=== PATIENT | female | born 2000 | race Caucasian/White ===

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

== ENCOUNTER 2022-01-28 20:14 | Emergency (ER) | payer BC ==
[2022-01-28] MEDS ORDERED: Sodium Chloride 0.9% 1000 ML 1,000 ML IV STA (20:44)
[2022-01-28 21:10] LABS: Basophil (Absolute #) 0.02 (0-0.4); Eosinophil % 0.6 % (0.00-5.0); Eosinophil (Absolute #) 0.05 (0-0.5); Hematocrit 41.7 % (35-47); Hemoglobin 14.8 gm/dl (12.0-16.0); Lymphocyte (Absolute #) 3.38 (1.0-4.6); Lymphocytes % 43.7 % (24.0-44.0); Mean Cell Volume 90.1 fl (78-100); Mean Corpuscular Hgb Concent. 35.5 g/dl (32-36); Mean Platelet Volume 8.6 fl (7.5-11.0); Monocyte (Absolute #) 0.69 (0.0-1.3); Monocytes % 8.9 % (0.0-12.0); Neutrophil % 46.5 % (36.0-66.0); Platelet Count 324 K/mm3 (150-450); Red Blood Count 4.63 M/mm3 (4.1-5.4); Red Cell Distribution Width 13.2 % (11.5-14.0); White Blood Count 7.7 K/mm3 (4.0-10.5)
[2022-01-28] MEDS ORDERED: Sodium Chloride 0.9% 1000 ML 1,000 ML ONE (21:11)
[2022-01-28 21:22] LABS: Appearance CLEAR (CLEAR); Bilirubin NEGATIVE (NEGATIVE); Glucose NEGATIVE (NEGATIVE); Ketones NEGATIVE (NEGATIVE); Ph 7.5 (5-6); RBC LARGE Ery/ul (0-5)
[2022-01-28 21:24] LABS: Dipstick done @ ? MAIN LAB; Nitrite NEGATIVE (NEGATIVE); Protein,Urine Dip NEGATIVE (Negative); Urobilinogen 0.2 mg/dL (0-1)
[2022-01-28 21:26] LABS: Epithelial Cells RARE /HPF (FEW); Mucus SLIGHT /HPF (NEGATIVE); WBC 26-50 /HPF (0-5)
[2022-01-28 21:30] LABS: Urine Cultured Indicated? YES
--- NOTE | 2022-01-28 21:35 | ERPHSYRPT ---
- History of Present Illness Time Seen by Provider: 01/28/22 20:17 Historian: patient Exam Limitations: no limitations Patient Subjective Stated Complaint: Patient c/o abdominal pain that started 3 days ago. Patient denies any vomiting but c/o nausea. Indicates pain is to the right of her abdomen and increases with standing and eating. Denies constipation; BM today. States had loose stools 2 days ago but suffers from IBS. States had an abdominal ultasound in the radiology department here at this hospital 2 days ago but has yet to get those results. Triage Nursing Assessment: Patient ambulated back to ED without difficulties. She is alert and oriented and answering questions appropriately. Abdomen is soft, with increased pain noted to right lower abdomen with palpation. Patient indicates that pain radiates to lower back. Physician History: 22 years old female with history of recently diagnosed IBS, started on dicyclomine presented in the ER with 3 days history of off-and-on upper abdominal pain especially in the right upper quadrant mild to moderate with associated nausea but no vomiting. Pain is more with eating and standing. Patient also reports having loose stool since morning. Denies hematochezia. Currently her pain is controlled. Patient was seen outpatient and had gallbladder ultrasound done. No fever or chills reported. Timing/Duration: day(s) (3), intermittent, gradual onset, worse Activities at Onset: activity Quality: cramping, dullness Abdominal Pain Onset Location: RUQ, epigastric Pain Radiation: no radiation Severity of Pain-Max: moderate Severity of Pain-Current: mild Modifying Factors: Worsens With: eating Associated Symptoms: diarrhea, nausea, vomiting Previous symptoms: no prior history Allergies/Adverse Reactions: No Known Drug Allergies Allergy (Verified 01/28/22 20:29) Home Medications: Dicyclomine HCl 10 mg PO TID 01/28/22 [History] Hx Tetanus, Diphtheria Vaccination/Date Given: Yes Hx Influenza Vaccination/Date Given: No Hx Pneumococcal Vaccination/Date Given: No Immunizations Up to Date: Yes Travel Risk - International Travel Have you traveled outside of the country in past 3 weeks: No - Coronavirus Screening Are you exhibiting any of the following symptoms?: No Close contact with a COVID-19 positive Pt in past 14-21 Days: No - Vaccine Status Have you recieved a Covid-19 vaccination: Yes 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: [employer] - Vaccination Dates Date of 2cond Vaccination (if applicable): 08/14/2021 - Review of Systems Constitutional: No Symptoms Ears, Nose, & Throat: No Symptoms Respiratory: No Symptoms Cardiac: No Symptoms Abdominal/Gastrointestinal: Abdominal Pain, Nausea, Diarrhea Genitourinary Symptoms: No Symptoms Musculoskeletal: No Symptoms Skin: No Symptoms Neurological: No Symptoms Psychological: No Symptoms Endocrine: No Symptoms Hematologic/Lymphatic: No Symptoms - Past Medical History Pertinent Past Medical History: Yes Neurological History: Migraines ENT History: No Pertinent History Cardiac History: No Pertinent History Respiratory History: No Pertinent History Endocrine Medical History: No Pertinent History Musculoskeletal History: No Pertinent History GI Medical History: Irritable Bowel History: No Pertinent History Psycho-Social History: Anxiety, Depression Female Reproductive Disorders: No Pertinent History Other Medical History: 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 - Past Surgical History Past Surgical History: No Neuro Surgical History: No Pertinent History Cardiac: No Pertinent History Respiratory: No Pertinent History Gastrointestinal: No Pertinent History Genitourinary: No Pertinent History Musculoskeletal: No Pertinent History Female Surgical History: No Pertinent History - Social History Smoking Status: Never smoker Exposure to second hand smoke: No Drug Use: none Patient Lives Alone: No - Female History Hx Last Menstrual Period: HASN'T HAD ONE IN A VERY LONG TIME Hx Now: No (UNSURE) - Nursing Vital Signs Nursing Vital Signs: Initial Vital Signs Temperature 99.4 F 01/28/22 20:30 Pulse Rate 114 H 01/28/22 20:30 Respiratory Rate 18 01/28/22 20:30 Blood Pressure 135/89 01/28/22 20:30 O2 Sat by Pulse Oximetry 99 01/28/22 20:30 Pain Scale Pain Intensity 0 - Physical Exam General Appearance: no apparent distress Eye Exam: PERRL/EOMI Ears, Nose, Throat Exam: normal ENT inspection Neck Exam: normal inspection, full range of motion Respiratory Exam: normal breath sounds, lungs clear Cardiovascular Exam: normal heart sounds, tachycardia Gastrointestinal/Abdomen Exam: soft, normal bowel sounds, tenderness (Minimal periumbilical tenderness), No guarding Back Exam: normal inspection, normal range of motion Extremity Exam: normal inspection, normal range of motion Neurologic Exam: alert, oriented x 3, cooperative Skin Exam: normal color SpO2 Interpretation: normal SpO2: 96 O2 Delivery: Room Air Ordered Tests: Active Orders 24 hr Category Date Time Status IV Insertion STAT Care 01/28/22 20:44 Active CBC W DIFF Stat Lab 01/28/22 21:06 Completed CMP Stat Lab 01/28/22 21:06 Completed CULTURE,URINE Stat Lab 01/28/22 20:54 Received HCG,QUALITATIVE URINE Stat Lab 01/28/22 20:54 Completed LIPASE Stat Lab 01/28/22 21:06 Completed Medication Summary Discontinued Medications Generic Name Dose Route Start Last Admin Trade Name Griffin PRN Reason Stop Dose Admin Sodium Chloride 1,000 mls @ 999 mls/hr 01/28/22 20:44 01/28/22 21:13 Sodium Chloride 0.9% 1000 Ml IV 01/28/22 21:44 999 mls/hr .Q1H1M STA Administration Sodium Chloride Confirm 01/28/22 21:11 Sodium Chloride 0.9% 1000 Ml Administered 01/28/22 21:12 Dose 1,000 mls @ ud .ROUTE .STK-MED ONE Lab/Rad Data: Laboratory Result Diagrams 01/28/22 21:06 01/28/22 21:06 Laboratory Results 01/28/22 01/28/22 01/28/22 Range/Units 21:06 21:06 20:54 WBC 7.7 (4.0-10.5) K/mm3 RBC 4.63 (4.1-5.4) M/mm3 Hgb 14.8 (12.0-16.0) gm/dl Hct 41.7 (35-47) % MCV 90.1 (78-100) fl MCH 32.0 (26-32) pg MCHC 35.5 (32-36) g/dl RDW 13.2 (11.5-14.0) % Plt Count 324 (150-450) K/mm3 MPV 8.6 (7.5-11.0) fl Gran % 46.5 (36.0-66.0) % Eos # (Auto) 0.05 (0-0.5) Absolute Lymphs (auto) 3.38 (1.0-4.6) Absolute Monos (auto) 0.69 (0.0-1.3) Lymphocytes % 43.7 (24.0-44.0) % Monocytes % 8.9 (0.0-12.0) % Eosinophils % 0.6 (0.00-5.0) % Basophils % 0.3 (0.0-0.4) % Absolute Granulocytes 3.60 (1.4-6.9) Basophils # 0.02 (0-0.4) Sodium 138 (137-145) mmol/L Potassium 4.1 (3.5-5.1) mmol/L Chloride 104 (98-107) mmol/L Carbon Dioxide 25 (22-30) mmol/L Anion Gap 13.5 (5-15) MEQ/L BUN 9 (7-17) mg/dL Creatinine 0.81 (0.52-1.04) mg/dL Estimated GFR > 60.0 ML/MIN Glucose 98 (74-106) mg/dL Calcium 9.4 (8.4-10.2) mg/dL Total Bilirubin 0.50 (0.2-1.3) mg/dL AST 38 H (14-36) U/L ALT 44 H (0-35) U/L Alkaline Phosphatase 79 (38-126) U/L Serum Total Protein 7.3 (6.3-8.2) g/dL Albumin 4.3 (3.5-5.0) g/dL Lipase 60 (23-300) U/L Urinalys Dipstick Clnc Urine Color (YELLOW) Urine Appearance (CLEAR) Urine pH (5-6) Ur Specific [place] (1.005-1.025) POC Urine Protein Conf (Negative) Urine Ketones (NEGATIVE) Urine Nitrite (NEGATIVE) Urine Bilirubin (NEGATIVE) Urine Urobilinogen (0-1) mg/dL Urine Leukocytes (NEGATIVE) Urine WBC (Auto) (0-5) /HPF Urine RBC (Auto) (0-2) /HPF U Epithel Cells (Auto) (FEW) /HPF Urine Bacteria (Auto) (NEGATIVE) /HPF Urine RBC (0-5) Abdulkadir/ul Urine Mucus (Auto) (NEGATIVE) /HPF Ur Culture Indicated? Urine Glucose (NEGATIVE) mg/dL Urine HCG, Qual NEGATIVE (Negative) 01/28/22 Range/Units 20:54 WBC (4.0-10.5) K/mm3 RBC (4.1-5.4) M/mm3 Hgb (12.0-16.0) gm/dl Hct (35-47) % MCV (78-100) fl MCH (26-32) pg MCHC (32-36) g/dl RDW (11.5-14.0) % Plt Count (150-450) K/mm3 MPV (7.5-11.0) fl Gran % (36.0-66.0) % Eos # (Auto) (0-0.5) Absolute Lymphs (auto) (1.0-4.6) Absolute Monos (auto) (0.0-1.3) Lymphocytes % (24.0-44.0) % Monocytes % (0.0-12.0) % Eosinophils % (0.00-5.0) % Basophils % (0.0-0.4) % Absolute Granulocytes (1.4-6.9) Basophils # (0-0.4) Sodium (137-145) mmol/L Potassium (3.5-5.1) mmol/L Chloride (98-107) mmol/L Carbon Dioxide (22-30) mmol/L Anion Gap (5-15) MEQ/L BUN (7-17) mg/dL Creatinine (0.52-1.04) mg/dL Estimated GFR ML/MIN Glucose (74-106) mg/dL Calcium (8.4-10.2) mg/dL Total Bilirubin (0.2-1.3) mg/dL AST (14-36) U/L ALT (0-35) U/L Alkaline Phosphatase (38-126) U/L Serum Total Protein (6.3-8.2) g/dL Albumin (3.5-5.0) g/dL Lipase (23-300) U/L Urinalys Dipstick Clnc MAIN LAB Urine Color YELLOW (YELLOW) Urine Appearance CLEAR (CLEAR) Urine pH 7.5 (5-6) Ur Specific [place] 1.020 (1.005-1.025) POC Urine Protein Conf NEGATIVE (Negative) Urine Ketones NEGATIVE (NEGATIVE) Urine Nitrite NEGATIVE (NEGATIVE) Urine Bilirubin NEGATIVE (NEGATIVE) Urine Urobilinogen 0.2 (0-1) mg/dL Urine Leukocytes SMALL (NEGATIVE) Urine WBC (Auto) 26-50 (0-5) /HPF Urine RBC (Auto) 6-10 (0-2) /HPF U Epithel Cells (Auto) RARE (FEW) /HPF Urine Bacteria (Auto) NONE (NEGATIVE) /HPF Urine RBC LARGE (0-5) Abdulkadir/ul Urine Mucus (Auto) SLIGHT (NEGATIVE) /HPF Ur Culture Indicated? YES Urine Glucose NEGATIVE (NEGATIVE) mg/dL Urine HCG, Qual (Negative) - Progress Progress: improved Progress Note: 01/28/22 22:12 Patient is offered pain medication which she refused. Given Zofran, feeling be tter. Normal white count, transaminases and 30s. Negative Earl sign. Patient had ultrasound done here couple of days ago with normal gallbladder. I believe patient symptoms are more secondary to IBS. Recommended continue with dicyclomine and take Tylenol as needed and will give Protonix at this could be acid reflux related. Outpatient follow-up. Do not think she needs imaging or work-up as abdominal exam on repeated evaluation is nonsurgical without any pain medications. Discussed signs symptoms of worsening needing return to ER which he seems understanding. Counseled pt/family regarding: lab results, diagnosis, need for follow-up - Departure Departure Disposition: Home Clinical Impression: Upper abdominal pain IBS (irritable bowel syndrome) Qualifiers: Irritable bowel syndrome type: with diarrhea Qualified Code(s): K58.0 - Irritable bowel syndrome with diarrhea Condition: Stable Critical Care Time: No Referrals: VEENA MO NP [Primary Care Provider] - Follow up/PCP as directed (1-2 days for reevaluation) Instructions: Acute Abdomen (Belly Pain), Adult (DC) Additional Instructions: Drink plenty of fluids. Take Tylenol/ dicyclomine as recommended. Follow-up with primary care for reevaluation. Return to ER for any worsening. Prescriptions: PANTOPRAZOLE 40 mg Tablet [Protonix 40MG Tablet] 40 mg PO QAM #30 tab
[2022-01-28 21:36] LABS: ALBUMIN 4.3 g/dL (3.5-5.0); ALKALINE PHOSPHATASE 79 U/L (38-126); ANION GAP 13.5 MEQ/L (5-15); BLOOD UREA NITROGEN 9 mg/dL (7-17); CHLORIDE 104 mmol/L (98-107); Calcium 9.4 mg/dL (8.4-10.2); Carbon Dioxide 25 mmol/L (22-30); Creatinine 1 0.81 mg/dL (0.52-1.04); EST GLOMERULAR FILTRATION RATE > 60.0 ML/MIN; Glucose 98 mg/dL (74-106); LIPASE 60 U/L (23-300); Potassium 4.1 mmol/L (3.5-5.1); SGOT/AST 38 U/L (14-36); SGPT/ALT 44 U/L (0-35); SODIUM 138 mmol/L (137-145); Total Protein 7.3 g/dL (6.3-8.2)
[2022-01-28 22:10] VITALS: BP 115/75; PULSE 102
[2022-01-28 22:14] VITALS: O2SAT 96
== END 2022-01-28 22:23 | disposition home or self-care (01) ==
LOC: ED 20:14
DX: R10.11 Right upper quadrant pain (principal); R10.13 Epigastric pain; K58.0 Irritable bowel syndrome with diarrhea; R11.2 Nausea with vomiting, unspecified
CPT/HCPCS: 36000; 36415; 80053; 81015; 83690; 84703; 85025; 87086; 96360; 99284

== ENCOUNTER 2022-04-20 02:51 | Emergency (ER) | payer BC ==
[2022-04-20 03:16] LABS: Bacteria MODERATE /HPF (NEGATIVE); Epithelial Cells MANY /HPF (FEW); Mucus SLIGHT /HPF (NEGATIVE)
[2022-04-20 03:18] LABS: Appearance CLOUDY (CLEAR); Bilirubin SMALL (NEGATIVE); Glucose 100 mg/dL (NEGATIVE); Ketones TRACE (NEGATIVE); Ph 5.5 (5-6); Protein,Urine Dip 100 (Negative); RBC LARGE Ery/ul (0-5); Specific Gravity >=1.030 (1.005-1.025)
[2022-04-20 03:19] LABS: Dipstick done @ ? MAIN LAB; Nitrite NEGATIVE (NEGATIVE); RBC >101 /HPF (0-2); Urine Cultured Indicated? YES; Urobilinogen 1 mg/dL (0-1)
--- NOTE | 2022-04-20 03:35 | ERPHSYRPT ---
- History of Present Illness Time Seen by Provider: 04/20/22 03:10 Historian: patient Patient Subjective Stated Complaint: pt staes she went swimming and then afterward removed her tampon, states she now has pelvic and abdominal pain that radiatesto back, she rates pain as 6/10. Triage Nursing Assessment: pt is alert and oriented, she ratesd pain as 6/10. Physician History: This is an obese 22-year-old white female patient of nurse practitioner Anatoly who states that she went swimming in a swimming pool over 24 hours ago with a tampon in place. It was removed after swimming session. In the subsequent 24 hours she had worsening pain in the suprapubic, pelvic, bilateral lower quadrant and radiation of this pain into the bilateral flank regions. The pain in the vagina is resolved. The pain is more of an ache and a pressure. It is worse when she is upright and standing. Patient denies fever and denies chills. She does have associated nausea but no vomiting. There is no abnormal vaginal discharge. Patient has a history of migraine headaches, irritable bowel syndrome and history of intra-abdominal infections in the past. Timing/Duration: yesterday Activities at Onset: none Quality: aching, pressure Abdominal Pain Onset Location: suprapubic Pain Radiation: flank, back Severity of Pain-Max: moderate Severity of Pain-Current: mild (To moderate) Modifying Factors: Improves With: position (Standing upright and walking worsens pain), walking Associated Symptoms: nausea, No chest pain, No diarrhea, No fever/chills Previous symptoms: no prior history Allergies/Adverse Reactions: No Known Drug Allergies Allergy (Verified 01/28/22 20:29) Home Medications: Dicyclomine HCl 10 mg PO TID 01/28/22 [History] Hx Tetanus, Diphtheria Vaccination/Date Given: No Hx Influenza Vaccination/Date Given: No Hx Pneumococcal Vaccination/Date Given: No Immunizations Up to Date: No Travel Risk - International Travel Have you traveled outside of the country in past 3 weeks: No - Coronavirus Screening Are you exhibiting any of the following symptoms?: No - Vaccine Status Have you recieved a Covid-19 vaccination: Yes 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 - Vaccination Dates Date of 2cond Vaccination (if applicable): unknown - Review of Systems Constitutional: No Symptoms Eyes: No Symptoms Ears, Nose, & Throat: No Symptoms Respiratory: No Symptoms Cardiac: No Symptoms Abdominal/Gastrointestinal: Abdominal Pain, Nausea, No Vomiting, No Diarrhea, No Constipation Genitourinary Symptoms: Flank Pain Musculoskeletal: No Symptoms Skin: No Symptoms Neurological: No Symptoms Psychological: No Symptoms Endocrine: No Symptoms Hematologic/Lymphatic: No Symptoms Immunological/Allergic: No Symptoms All Other Systems: Reviewed and Negative - Past Medical History Pertinent Past Medical History: Yes Neurological History: Migraines ENT History: No Pertinent History Cardiac History: No Pertinent History Respiratory History: No Pertinent History Endocrine Medical History: No Pertinent History Musculoskeletal History: No Pertinent History GI Medical History: Irritable Bowel History: No Pertinent History Psycho-Social History: Anxiety, Depression Female Reproductive Disorders: No Pertinent History Other Medical History: 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, vertigo - Past Surgical History Past Surgical History: No Neuro Surgical History: No Pertinent History Cardiac: No Pertinent History Respiratory: No Pertinent History Gastrointestinal: No Pertinent History Genitourinary: No Pertinent History Musculoskeletal: No Pertinent History Female Surgical History: No Pertinent History - Social History Smoking Status: Never smoker Exposure to second hand smoke: No Drug Use: none Patient Lives Alone: No - Female History Hx Last Menstrual Period: 04/19/22 Hx Now: No - Nursing Vital Signs Nursing Vital Signs: Initial Vital Signs Temperature 97.2 F 04/20/22 02:57 Pulse Rate 123 H 04/20/22 02:57 Respiratory Rate 18 04/20/22 02:57 Blood Pressure 112/74 04/20/22 02:57 O2 Sat by Pulse Oximetry 100 04/20/22 02:57 Pain Scale Pain Intensity 6 - Physical Exam General Appearance: no apparent distress, alert, anxiety, obese Eye Exam: PERRL/EOMI, eyes nml inspection Ears, Nose, Throat Exam: normal ENT inspection, moist mucous membranes Neck Exam: normal inspection, non-tender, supple, full range of motion Respiratory Exam: normal breath sounds, lungs clear, airway intact, No chest tenderness, No respiratory distress Cardiovascular Exam: tachycardia Gastrointestinal/Abdomen Exam: soft, normal bowel sounds, tenderness (Mild suprapubic tenderness with palpation), guarding (Suprapubic region), No rebound Pelvic Exam: not done Rectal Exam: not done Back Exam: normal inspection, normal range of motion, No CVA tenderness, No vert ebral tenderness Extremity Exam: normal inspection Neurologic Exam: alert, oriented x 3, cooperative, intake specialist II-XII nml as tested, normal mood/affect, nml cerebellar function, nml station & gait, sensation nml Skin Exam: normal color, warm, dry Lymphatic Exam: No adenopathy SpO2 Interpretation: normal SpO2: 100 O2 Delivery: Room Air - Course Nursing assessment & vital signs reviewed: Yes Ordered Tests: Active Orders 24 hr Category Date Time Status ABDOMEN AND PELVIS W/0 CONTRAS [CT] Stat Exams 04/20/22 03:23 Taken CULTURE,URINE Stat Lab 04/20/22 03:10 Received HCG,QUALITATIVE URINE Stat Lab 04/20/22 03:10 Completed UA W/RFX CULTURE Stat Lab 04/20/22 03:10 Completed Medication Summary Generic Name Dose Route Start Last Admin Trade Name Freq PRN Reason Stop Dose Admin Clindamycin HCl 300 mg 04/20/22 04:35 Clindamycin Hcl 150 Mg Capsule PO 04/20/22 04:36 STAT ONE Discontinued Medications Generic Name Dose Route Start Last Admin Trade Name Freq PRN Reason Stop Dose Admin Ceftriaxone Sodium 1,000 mg 04/20/22 04:20 04/20/22 04:30 Ceftriaxone Sodium 1000 Mg Inj Vial IM 04/20/22 04:21 1,000 mg STAT ONE Administration Ceftriaxone Sodium Confirm 04/20/22 04:29 Ceftriaxone Sodium 1000 Mg Inj Vial Administered 04/20/22 04:30 Dose 1,000 mg .ROUTE .STK-MED ONE Lab/Rad Data: Laboratory Results 04/20/22 04/20/22 Range/Units 03:10 03:10 Urinalys Dipstick Clnc MAIN LAB Urine Color PINK (YELLOW) Urine Appearance CLOUDY (CLEAR) Urine pH 5.5 (5-6) Ur Specific [place] >=1.030 (1.005-1.025) POC Urine Protein Conf 100 (Negative) Urine Ketones TRACE (NEGATIVE) Urine Nitrite NEGATIVE (NEGATIVE) Urine Bilirubin SMALL (NEGATIVE) Urine Urobilinogen 1 (0-1) mg/dL Urine Leukocytes SMALL (NEGATIVE) Urine WBC (Auto) 16-25 (0-5) /HPF Urine RBC (Auto) >101 (0-2) /HPF U Epithel Cells (Auto) MANY (FEW) /HPF Urine Bacteria (Auto) MODERATE (NEGATIVE) /HPF Urine RBC LARGE (0-5) Abdulkadir/ul Urine Mucus (Auto) SLIGHT (NEGATIVE) /HPF Ur Culture Indicated? YES Urine Glucose 100 (NEGATIVE) mg/dL Urine HCG, Qual NEGATIVE (Negative) - Progress Progress: improved, pain not gone completely, re-examined Progress Note: 04/20/22 04:37 Medical decision making: This patient has a urinary tract infection. I do not feel as though she has toxic shock syndrome. However, patients with urinary tract infection do not typically have adenopathy/lymphadenitis. Will treat her with both cefdinir and clindamycin for 5 days. She is to take Tylenol and ibuprofen for pain control. She is afebrile. 04/20/22 04:38 The CAT scan of the abdomen pelvis shows bilateral lymphadenitis and a right ovarian cyst. They did not clarify where the lymphadenitis is. I am assuming it is inguinal but I will get this clarified. Counseled pt/family regarding: lab results, diagnosis, need for follow-up, rad results - Departure Departure Disposition: Home Clinical Impression: Right ovarian cyst, UTI (urinary tract infection) Condition: Stable Critical Care Time: No Referrals: VEENA MO NP [Primary Care Provider] - Follow up/PCP as directed Additional Instructions: Drink plenty of fluids. Take your antibiotics as prescribed. Use Tylenol and ibuprofen for pain and fever control. Follow-up with your primary care provider for further evaluation and management. Prescriptions: Cefdinir 300 mg PO BID #10 cap clindamycin HCL [Clindamycin HCl] 300 mg PO TID #15 cap
[2022-04-20] MEDS ORDERED: Rocephin 1000 MG INJ IM ONE (04:20)
[2022-04-20] MEDS ORDERED: Rocephin 1000 MG INJ ONE (04:29)
[2022-04-20] MEDS ORDERED: CLEOCIN 150 MG CAPSULE PO ONE (04:35)
[2022-04-20] MEDS ORDERED: CLEOCIN 150 MG CAPSULE ONE (04:42)
[2022-04-20 04:47] VITALS: BP 104/67; PULSE 97; O2SAT 97
--- NOTE | 2022-04-20 08:46 | XRAY ---
Indication: Suprapubic and bilateral flank pain. Multiple contiguous axial images obtained through the abdomen and pelvis without contrast. Comparison: March 09, 2017 Lung bases remain clear. Heart not enlarged. Noncontrasted stomach and bowel loops nonobstructed again with normal appendix. No free fluid/air. Remaining liver, gallbladder, pancreas, spleen, adrenal glands, kidneys, ureters, bladder, uterus, and aorta are unremarkable for noncontrast exam. Osseous structures intact. No ventral inguinal hernias. Partially visualized enlarged bilateral inguinal lymph nodes with stranding, largest on the left measuring 2.1 x 2.5 cm. Lymph nodes presumed reactive. Impression: 1. Partially visualized enlarged bilateral inguinal lymph nodes with stranding presumed reactive. 2. Remaining CT abdomen/pelvis without contrast exam is negative. Comment: Preliminary interpretation made by [facility]. No critical discrepancy.
== END 2022-04-20 04:53 | disposition home or self-care (01) ==
LOC: ED 02:51
DX: N39.0 Urinary tract infection, site not specified (principal); N83.201 Unspecified ovarian cyst, right side; R10.2 Pelvic and perineal pain; R10.31 Right lower quadrant pain; R10.32 Left lower quadrant pain; R11.0 Nausea
CPT/HCPCS: 74176; 81015; 81025; 87086; 96372; 99284; J0696; A9270-GY

== ENCOUNTER 2022-08-25 19:33 | Emergency (ER) | payer BC ==
--- NOTE | 2022-08-25 19:46 | ERPHSYRPT ---
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 Blood pressure was taken and she had a diastolic blood pressure of 110. Patient is not on any medic ations that she has no known drug allergies. Upon arrival to the emergency department her systolic blood pressure was 142 and her diastolic blood pressure was 83. She had a normal heart rate on arrival to the emergency department. Patient has a history of migraine headaches, irritable bowel syndrome, anxiety, vertigo. Patient denies any head trauma. Timing/Duration: week(s) (1), intermittent, worse Severity: mild Associated Symptoms: nausea, vomiting, headaches, No shortness of breath, No chest pain, No fever Allergies/Adverse Reactions: No Known Drug Allergies Allergy (Verified 08/25/22 19:37) Hx Tetanus, Diphtheria Vaccination/Date Given: No Hx Influenza Vaccination/Date Given: No Hx Pneumococcal Vaccination/Date Given: No Travel Risk - Coronavirus Screening Are you exhibiting any of the following symptoms?: Yes Symptoms: Vomiting/Diarrhea, Headaches/Body Aches/Fatigue Close contact with a COVID-19 positive Pt in past 14-21 Days: No - Vaccine Status Have you recieved a Covid-19 vaccination: Yes 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[employer] - Vaccination Dates Date of 2cond Vaccination (if applicable): unknown - Review of Systems Constitutional: No Symptoms Eyes: No Symptoms Ears, Nose, & Throat: No Symptoms Respiratory: No Symptoms Cardiac: No Symptoms Abdominal/Gastrointestinal: Nausea, Vomiting, No Abdominal Pain, No Diarrhea, No Constipation Genitourinary Symptoms: No Symptoms Musculoskeletal: No Symptoms Skin: No No Symptoms Neurological: Dizziness, Headache Psychological: No Symptoms Endocrine: No Symptoms Hematologic/Lymphatic: No Symptoms Immunological/Allergic: No Symptoms All Other Systems: Reviewed and Negative - Past Medical History Pertinent Past Medical History: Yes Neurological History: Migraines ENT History: No Pertinent History Cardiac History: No Pertinent History Respiratory History: No Pertinent History Endocrine Medical History: No Pertinent History Musculoskeletal History: No Pertinent History GI Medical History: Irritable Bowel History: No Pertinent History Psycho-Social History: Anxiety, Depression Female Reproductive Disorders: No Pertinent History Other Medical History: 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, vertigo - Past Surgical History Past Surgical History: No Neuro Surgical History: No Pertinent History Cardiac: No Pertinent History Respiratory: No Pertinent History Gastrointestinal: No Pertinent History Genitourinary: No Pertinent History Musculoskeletal: No Pertinent History Female Surgical History: No Pertinent History - Social History Smoking Status: Never smoker Exposure to second hand smoke: No Drug Use: none Patient Lives Alone: No - Nursing Vital Signs Nursing Vital Signs: Initial Vital Signs Temperature 99.4 F 08/25/22 19:38 Pulse Rate 125 H 08/25/22 19:38 Respiratory Rate 16 08/25/22 19:38 Blood Pressure 142/83 08/25/22 19:38 O2 Sat by Pulse Oximetry 97 08/25/22 19:38 Pain Scale Pain Intensity 4 - Physical Exam General Appearance: no apparent distress, alert, anxiety Eye Exam: PERRL/EOMI, eyes nml inspection Ears, Nose, Throat Exam: normal ENT inspection, moist mucous membranes Neck Exam: normal inspection, non-tender, supple, full range of motion Respiratory Exam: normal breath sounds, lungs clear, airway intact, No chest tenderness, No respiratory distress Cardiovascular Exam: tachycardia Gastrointestinal/Abdomen Exam: soft, normal bowel sounds, No tenderness Pelvic Exam: not done Rectal Exam: not done Back Exam: normal inspection, normal range of motion, No CVA tenderness Extremity Exam: normal inspection, normal range of motion, No pelvis stable Neurologic Exam: alert, oriented x 3, 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, 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, normal mood/affect, nml cerebellar function, nml station & gait, sensation nml Skin Exam: normal color, warm, dry Lymphatic Exam: No adenopathy SpO2 Interpretation: normal O2 Delivery: Room Air - Course Nursing assessment & vital signs reviewed: Yes Ordered Tests: Active Orders 24 hr Category Date Time Status 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 Care 08/25/22 19:55 Active IV Insertion STAT Care 08/25/22 19:54 Active Pulse Oximetry (ED) STAT Care 08/25/22 19:54 Active HEAD WITHOUT CONTRAST [CT] Stat Exams 08/25/22 19:54 Taken CBC W DIFF Stat Lab 08/25/22 20:05 Completed CMP Stat Lab 08/25/22 20:05 Completed CULTURE,URINE Stat Lab 08/25/22 20:06 Received HCG,QUALITATIVE URINE Stat Lab 08/25/22 20:06 Completed UA W/RFX CULTURE Stat Lab 08/25/22 20:06 Completed Medication Summary Discontinued Medications Generic Name Dose Route Start Last Admin Trade Name Griffin PRN Reason Stop Dose Admin Sodium Chloride 1,000 mls @ 999 mls/hr 08/25/22 19:54 08/25/22 21:05 Sodium Chloride 0.9% 1000 Ml IV 08/25/22 20:54 Infused .Q1H1M STA Infusion Sodium Chloride Confirm 08/25/22 20:01 Sodium Chloride 0.9% 1000 Ml Administered 08/25/22 20:02 Dose 1,000 mls @ ud .ROUTE .STK-MED ONE Levofloxacin 500 mg 08/25/22 21:04 08/25/22 21:06 Levofloxacin 500 Mg Tablet PO 08/25/22 21:05 500 mg STAT ONE Administration Levofloxacin Confirm 08/25/22 21:05 Levofloxacin 500 Mg Tablet Administered 08/25/22 21:06 Dose 500 mg .ROUTE .STK-MED ONE Ondansetron HCl 4 mg 08/25/22 19:54 08/25/22 20:03 Ondansetron Hcl 4 Mg/2 Ml Vial IV 08/25/22 19:55 4 mg STAT ONE Administration Ondansetron HCl Confirm 08/25/22 20:01 Ondansetron Hcl 4 Mg/2 Ml Vial Administered 08/25/22 20:02 Dose 4 mg .ROUTE .STK-MED ONE Lab/Rad Data: Laboratory Result Diagrams 08/25/22 20:05 08/25/22 20:05 Laboratory Results 08/25/22 08/25/22 08/25/22 Range/Units 20:15 20:06 20:06 WBC (4.0-10.5) x10^3/uL RBC (4.1-5.4) x10^6/uL Hgb (12.0-16.0) g/dL Hct (35-47) % MCV (78-100) fL MCH (26-32) pg MCHC (32-36) g/dL RDW (11.5-14.0) % Plt Count (150-450) x10^3/uL MPV (7.5-11.0) fL Gran % (36.0-66.0) % Immature Gran % (Auto) (0.00-0.4) % Nucleat RBC Rel Count (0.00-0.1) % Eos # (Auto) (0-0.5) x10^3/uL Immature Gran # (Auto) (0.00-0.03) x10^3u/L Absolute Lymphs (auto) (1.0-4.6) x10^3/uL Absolute Monos (auto) (0.0-1.3) x10^3/uL Absolute Nucleated RBC (0.00-0.01) x10^3u/L Lymphocytes % (24.0-44.0) % Monocytes % (0.0-12.0) % Eosinophils % (0.00-5.0) % Basophils % (0.0-0.4) % Absolute Granulocytes (1.4-6.9) x10^3/uL Basophils # (0-0.4) x10^3/uL Sodium (137-145) mmol/L Potassium (3.5-5.1) mmol/L Chloride (98-107) mmol/L Carbon Dioxide (22-30) mmol/L Anion Gap (5-15) MEQ/L BUN (7-17) mg/dL Creatinine (0.52-1.04) mg/dL Estimated GFR ML/MIN Glucose (74-106) mg/dL Calcium (8.4-10.2) mg/dL Total Bilirubin (0.2-1.3) mg/dL AST (14-36) U/L ALT (0-35) U/L Alkaline Phosphatase (38-126) U/L Serum Total Protein (6.3-8.2) g/dL Albumin (3.5-5.0) g/dL Urinalys Dipstick Clnc MAIN LAB Urine Color YELLOW (YELLOW) Urine Appearance CLEAR (CLEAR) Urine pH 6.5 (5-6) Ur Specific [place] 1.020 (1.005-1.025) POC Urine Protein Conf NEGATIVE (Negative) Urine Ketones NEGATIVE (NEGATIVE) Urine Nitrite NEGATIVE (NEGATIVE) Urine Bilirubin NEGATIVE (NEGATIVE) Urine Urobilinogen 0.2 (0-1) mg/dL Urine Leukocytes SMALL (NEGATIVE) Urine WBC (Auto) 3-5 (0-5) /HPF Urine RBC (Auto) 3-5 (0-2) /HPF U Epithel Cells (Auto) RARE (FEW) /HPF Urine Bacteria (Auto) RARE (NEGATIVE) /HPF Urine RBC TRACE-INTACT (0-5) Abdulkadir/ul Urine Mucus (Auto) SLIGHT (NEGATIVE) /HPF Ur Culture Indicated? YES Urine Glucose NEGATIVE (NEGATIVE) mg/dL Urine HCG, Qual NEGATIVE (Negative) Influenza Type A Ag NEGATIVE (NEGATIVE) Influenza Type B Ag NEGATIVE (NEGATIVE) RSV (PCR) NEGATIVE (Negative) SARS-CoV-2 (PCR) NEGATIVE (NEGATIVE) 08/25/22 08/25/22 Range/Units 20:05 20:05 WBC 6.0 (4.0-10.5) x10^3/uL RBC 4.59 (4.1-5.4) x10^6/uL Hgb 14.1 (12.0-16.0) g/dL Hct 41.1 (35-47) % MCV 89.5 (78-100) fL MCH 30.7 (26-32) pg MCHC 34.3 (32-36) g/dL RDW 12.4 (11.5-14.0) % Plt Count 247 (150-450) x10^3/uL MPV 8.1 (7.5-11.0) fL Gran % 62.4 (36.0-66.0) % Immature Gran % (Auto) 0.2 (0.00-0.4) % Nucleat RBC Rel Count 0.0 (0.00-0.1) % Eos # (Auto) 0.01 (0-0.5) x10^3/uL Immature Gran # (Auto) 0.01 (0.00-0.03) x10^3u/L Absolute Lymphs (auto) 1.78 (1.0-4.6) x10^3/uL Absolute Monos (auto) 0.42 (0.0-1.3) x10^3/uL Absolute Nucleated RBC 0.00 (0.00-0.01) x10^3u/L Lymphocytes % 29.5 (24.0-44.0) % Monocytes % 7.0 (0.0-12.0) % Eosinophils % 0.2 (0.00-5.0) % Basophils % 0.7 (0.0-0.4) % Absolute Granulocytes 3.78 (1.4-6.9) x10^3/uL Basophils # 0.04 (0-0.4) x10^3/uL Sodium 135 L (137-145) mmol/L Potassium 3.7 (3.5-5.1) mmol/L Chloride 101 (98-107) mmol/L Carbon Dioxide 26 (22-30) mmol/L Anion Gap 10.9 (5-15) MEQ/L BUN 5 L (7-17) mg/dL Creatinine 0.73 (0.52-1.04) mg/dL Estimated GFR > 60.0 ML/MIN Glucose 98 (74-106) mg/dL Calcium 9.0 (8.4-10.2) mg/dL Total Bilirubin 0.70 (0.2-1.3) mg/dL AST 47 H (14-36) U/L ALT 36 H (0-35) U/L Alkaline Phosphatase 99 (38-126) U/L Serum Total Protein 8.0 (6.3-8.2) g/dL Albumin 4.5 (3.5-5.0) g/dL Urinalys Dipstick Clnc Urine Color (YELLOW) Urine Appearance (CLEAR) Urine pH (5-6) Ur Specific [place] (1.005-1.025) POC Urine Protein Conf (Negative) Urine Ketones (NEGATIVE) Urine Nitrite (NEGATIVE) Urine Bilirubin (NEGATIVE) Urine Urobilinogen (0-1) mg/dL Urine Leukocytes (NEGATIVE) Urine WBC (Auto) (0-5) /HPF Urine RBC (Auto) (0-2) /HPF U Epithel Cells (Auto) (FEW) /HPF Urine Bacteria (Auto) (NEGATIVE) /HPF Urine RBC (0-5) Abdulkadir/ul Urine Mucus (Auto) (NEGATIVE) /HPF Ur Culture Indicated? Urine Glucose (NEGATIVE) mg/dL Urine HCG, Qual (Negative) Influenza Type A Ag (NEGATIVE) Influenza Type B Ag (NEGATIVE) RSV (PCR) (Negative) SARS-CoV-2 (PCR) (NEGATIVE) - Progress Progress: improved - Departure Departure Disposition: Home Clinical Impression: UTI (urinary tract infection), Dizziness, Headache Condition: Stable Critical Care Time: No Referrals: VEENA MO, [facility] [Primary Care Provider] - Follow up/PCP as directed Additional Instructions: Drink plenty of fluids. Follow-up with your primary care for further evaluation management. Take your medication as prescribed. Prescriptions: Ciprofloxacin [Cipro 500 MG] 500 mg PO BID #14 tablet
[2022-08-25] MEDS ORDERED: Sodium Chloride 0.9% 1000 ML 1,000 ML IV STA (19:54)
[2022-08-25] MEDS ORDERED: Zofran 4 MG/2 ML VIAL IV ONE (19:54)
[2022-08-25] MEDS ORDERED: Zofran 4 MG/2 ML VIAL ONE (20:01)
[2022-08-25] MEDS ORDERED: Sodium Chloride 0.9% 1000 ML 1,000 ML ONE (20:01)
[2022-08-25 20:14] LABS: Absolute Neutrophil Ct (ANC) 3.78 x10^3/uL (1.4-6.9); Basophil (Absolute #) 0.04 x10^3/uL (0-0.4); Eosinophil % 0.2 % (0.00-5.0); Eosinophil (Absolute #) 0.01 x10^3/uL (0-0.5); Hematocrit 41.1 % (35-47); Hemoglobin 14.1 g/dL (12.0-16.0); Lymphocyte (Absolute #) 1.78 x10^3/uL (1.0-4.6); Lymphocytes % 29.5 % (24.0-44.0); Mean Cell Volume 89.5 fL (78-100); Mean Corpuscular Hemoglobin 30.7 pg (26-32); Mean Corpuscular Hgb Concent. 34.3 g/dL (32-36); Mean Platelet Volume 8.1 fL (7.5-11.0); Monocyte (Absolute #) 0.42 x10^3/uL (0.0-1.3); Neutrophil % 62.4 % (36.0-66.0); Platelet Count 247 x10^3/uL (150-450); Red Blood Count 4.59 x10^6/uL (4.1-5.4); Red Cell Distribution Width 12.4 % (11.5-14.0)
[2022-08-25 20:26] LABS: Appearance CLEAR (CLEAR); Bilirubin NEGATIVE (NEGATIVE); Dipstick done @ ? MAIN LAB; Glucose NEGATIVE (NEGATIVE); Ketones NEGATIVE (NEGATIVE); Nitrite NEGATIVE (NEGATIVE); Ph 6.5 (5-6); Protein,Urine Dip NEGATIVE (Negative); RBC TRACE-INTACT Ery/ul (0-5); Urobilinogen 0.2 mg/dL (0-1)
[2022-08-25 20:36] LABS: Bacteria RARE /HPF (NEGATIVE); Epithelial Cells RARE /HPF (FEW); Mucus SLIGHT /HPF (NEGATIVE)
[2022-08-25 20:41] LABS: Urine Cultured Indicated? YES
[2022-08-25 20:51] LABS: ALBUMIN 4.5 g/dL (3.5-5.0); ALKALINE PHOSPHATASE 99 U/L (38-126); ANION GAP 10.9 MEQ/L (5-15); BLOOD UREA NITROGEN 5 mg/dL (7-17); CHLORIDE 101 mmol/L (98-107); Carbon Dioxide 26 mmol/L (22-30); Creatinine 1 0.73 mg/dL (0.52-1.04); EST GLOMERULAR FILTRATION RATE > 60.0 ML/MIN; Glucose 98 mg/dL (74-106); Potassium 3.7 mmol/L (3.5-5.1); SGOT/AST 47 U/L (14-36); SGPT/ALT 36 U/L (0-35); SODIUM 135 mmol/L (137-145)
[2022-08-25 21:02] LABS: INFLUENZA A NEGATIVE (NEGATIVE); INFLUENZA B NEGATIVE (NEGATIVE); RESPIRATORY SYNCTIAL VIRUS NEGATIVE (Negative); SARS-CoV-2 Xpert Express NEGATIVE (NEGATIVE)
[2022-08-25] MEDS ORDERED: Levofloxacin 500 MG Tablet PO ONE (21:04)
[2022-08-25 21:05] VITALS: O2SAT 98
[2022-08-25] MEDS ORDERED: Levofloxacin 500 MG Tablet ONE (21:05)
[2022-08-25 21:45] VITALS: BP 116/56; PULSE 97
--- NOTE | 2022-08-26 08:47 | XRAY ---
Indication: Headaches. Elevated blood pressure. History of migraines. Multiple contiguous axial images obtained through the head without contrast. Comparison: March 07, 2021 Normal appearing brain parenchyma, ventricles, and bony calvarium. Visualized paranasal sinuses and mastoid air cells are clear. Impression: Continued normal CT head without contrast exam.
== END 2022-08-25 21:45 | disposition home or self-care (01) ==
LOC: ED 19:33
DX: N39.0 Urinary tract infection, site not specified (principal); R42 Dizziness and giddiness; R51.9 Headache, unspecified; R03.0 Elevated blood-pressure reading, without diagnosis of hypertension; R11.2 Nausea with vomiting, unspecified
CPT/HCPCS: 0241U; 36000; 36415; 70450; 80053; 81015; 81025; 85025; 87086; 93041; 94760; 96360; 96374; 99284; J2405; A9270-GY

== ENCOUNTER 2022-10-31 07:43 | Emergency (ER) | payer BC ==
[2022-10-31] MEDS ORDERED: Sodium Chloride 0.9% 1000 ML 1,000 ML IV STA (08:00)
--- NOTE | 2022-10-31 08:00 | ERPHSYRPT ---
- History of Present Illness Time Seen by Provider: 10/31/22 07:56 Source: patient Exam Limitations: no limitations Patient Subjective Stated Complaint: Left sided rib pain Triage Nursing Assessment: Patient ambulated back to ED and transferred self to bed. Patient A+O X 3. Patient's skin pink, warm and dry. Patient complains of left sided rib discomfort. Patient states she feels like the area is "bubbling" on and off for one week. Patient denies fever, cough, but complains of occasional SOB. Lungs clear a/p vianney. 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 She describes the sensation as a bubbling in the left chest which occasionally moves to the substernal area. She said is discomfort but not pain. She does have some shortness of breath. She has no history of any lung or pulmonary problems. She has no cardiac history. Her boyfriend who she resides with has had the flu and has residual bad sounding cough she has had no symptoms of COVID flu RSV etc. This sensation of bubbling in her chest is something that comes and goes. Timing/Duration: week(s) (1) Activities at Onset: none Severity of Dyspnea-Max: moderate Severity of Dyspnea-Current: moderate Possible Cause: no prior episodes, illness exposure (At work and at home) Associated Symptoms: chest pain/discomfort Allergies/Adverse Reactions: No Known Drug Allergies Allergy (Verified 10/31/22 07:47) Hx Tetanus, Diphtheria Vaccination/Date Given: No Hx Influenza Vaccination/Date Given: No Hx Pneumococcal Vaccination/Date Given: No Immunizations Up to Date: Yes Travel Risk - International Travel Have you traveled outside of the country in past 3 weeks: No - Coronavirus Screening Are you exhibiting any of the following symptoms?: No Close contact with a COVID-19 positive Pt in past 14-21 Days: No - Vaccine Status Have you recieved a Covid-19 vaccination: Yes 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: [employer] - Vaccination Dates Date of 2cond Vaccination (if applicable): unknown - Review of Systems Constitutional: No Fever, No Chills Eyes: No Symptoms Ears, Nose, & Throat: No Symptoms Respiratory: Other (Bubbling sensation in the left chest and substernal area with exhalation), No Cough, No Dyspnea Cardiac: Chest Pain, No Edema, No Syncope Abdominal/Gastrointestinal: No Abdominal Pain, No Nausea, No Vomiting, No Diarrhea Genitourinary Symptoms: No Dysuria Musculoskeletal: No Back Pain, No Neck Pain Skin: No Rash Neurological: No Dizziness, No Focal Weakness, No Sensory Changes Psychological: No Symptoms Endocrine: No Symptoms All Other Systems: Reviewed and Negative - Past Medical History Pertinent Past Medical History: Yes Neurological History: Migraines ENT History: No Pertinent History Cardiac History: No Pertinent History Respiratory History: No Pertinent History Endocrine Medical History: No Pertinent History Musculoskeletal History: No Pertinent History GI Medical History: Irritable Bowel History: No Pertinent History Psycho-Social History: Anxiety, Depression Female Reproductive Disorders: No Pertinent History Other Medical History: 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, vertigo - Past Surgical History Past Surgical History: No Neuro Surgical History: No Pertinent History Cardiac: No Pertinent History Respiratory: No Pertinent History Gastrointestinal: No Pertinent History Genitourinary: No Pertinent History Musculoskeletal: No Pertinent History Female Surgical History: No Pertinent History - Social History Smoking Status: Never smoker Exposure to second hand smoke: No Drug Use: none Patient Lives Alone: No - Female History Hx Last Menstrual Period: one month ago Hx Now: No - Nursing Vital Signs Nursing Vital Signs: Initial Vital Signs Temperature 97.7 F 10/31/22 07:48 Pulse Rate 95 H 10/31/22 07:48 Respiratory Rate 18 10/31/22 07:48 Blood Pressure 134/98 10/31/22 07:48 O2 Sat by Pulse Oximetry 99 10/31/22 07:48 Pain Scale Pain Intensity 0 - Physical Exam General Appearance: no apparent distress, alert Eye Exam: PERRL/EOMI Neck Exam: normal inspection, supple Cardiovascular/Chest Exam: normal heart sounds, regular rate/rhythm Abdominal/Gastrointestinal Exam: soft, No tenderness, No distention, No mass Extremity Exam: non-tender, normal range of motion, normal inspection, no calf tenderness, no pedal edema Neurologic Exam: alert, oriented x 3, 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, 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, sensation nml, No motor deficits Skin Exam: normal color, warm, No dry SpO2 Interpretation: normal SpO2: 99 O2 Delivery: Room Air - Course Nursing assessment & vital signs reviewed: Yes EKG Interpreted by Me: RATE (89), Sinus Rhythm, NORMAL AXIS, NORMAL INTERVALS, NORMAL QRS, NORMAL ST-T - Radiology Exams Chest X-ray Interpretation: Interpreted by me, Negative Ordered Tests: Active Orders 24 hr Category Date Time Status EKG-ER Only STAT Care 10/31/22 08:00 Active CHEST 1 VIEW (PORTABLE) Stat Exams 10/31/22 08:01 Taken CBC W DIFF Stat Lab 10/31/22 08:15 Completed CMP Stat Lab 10/31/22 08:15 Completed D-DIMER QUANTITATIVE Stat Lab 10/31/22 08:15 Completed Lactic Acid Stat Lab 10/31/22 08:00 Ordered NT PRO BNP Stat Lab 10/31/22 08:15 Completed TROPONIN Q4H Lab 10/31/22 08:15 Completed TROPONIN Q4H Lab 10/31/22 12:15 Ordered TROPONIN Q4H Lab 10/31/22 16:15 Ordered UA W/RFX CULTURE Stat Lab 10/31/22 Ordered Medication Summary Discontinued Medications Generic Name Dose Route Start Last Admin Trade Name Freq PRN Reason Stop Dose Admin Sodium Chloride 1,000 mls @ 999 mls/hr 10/31/22 08:00 10/31/22 08:21 Sodium Chloride 0.9% 1000 Ml IV 10/31/22 09:00 999 mls/hr .Q1H1M STA Administration Sodium Chloride Confirm 10/31/22 08:20 Sodium Chloride 0.9% 1000 Ml Administered 10/31/22 08:21 Dose 1,000 mls @ ud .ROUTE .STK-MED ONE Lab/Rad Data: Laboratory Result Diagrams 10/31/22 08:15 10/31/22 08:15 Laboratory Results 10/31/22 10/31/22 10/31/22 Range/Units 08:15 08:15 08:15 WBC (4.0-10.5) x10^3/uL RBC (4.1-5.4) x10^6/uL Hgb (12.0-16.0) g/dL Hct (35-47) % MCV (78-100) fL MCH (26-32) pg MCHC (32-36) g/dL RDW (11.5-14.0) % Plt Count (150-450) x10^3/uL MPV (7.5-11.0) fL Gran % (36.0-66.0) % Immature Gran % (Auto) (0.00-0.4) % Nucleat RBC Rel Count (0.00-0.1) % Eos # (Auto) (0-0.5) x10^3/uL Immature Gran # (Auto) (0.00-0.03) x10^3u/L Absolute Lymphs (auto) (1.0-4.6) x10^3/uL Absolute Monos (auto) (0.0-1.3) x10^3/uL Absolute Nucleated RBC (0.00-0.01) x10^3u/L Lymphocytes % (24.0-44.0) % Monocytes % (0.0-12.0) % Eosinophils % (0.00-5.0) % Basophils % (0.0-0.4) % Absolute Granulocytes (1.4-6.9) x10^3/uL Basophils # (0-0.4) x10^3/uL D-Dimer 0.32 (0.0-0.50) mg/L Sodium 137 (137-145) mmol/L Potassium 3.6 (3.5-5.1) mmol/L Chloride 104 (98-107) mmol/L Carbon Dioxide 25 (22-30) mmol/L Anion Gap 11.7 (5-15) MEQ/L BUN 11 (7-17) mg/dL Creatinine 0.63 (0.52-1.04) mg/dL Estimated GFR > 60.0 ML/MIN Glucose 113 H (74-106) mg/dL Calcium 9.0 (8.4-10.2) mg/dL Total Bilirubin 0.40 (0.2-1.3) mg/dL AST 58 H (14-36) U/L ALT 32 (0-35) U/L Alkaline Phosphatase 100 (38-126) U/L Troponin I < 0.012 (0.000-0.034) ng/mL NT-Pro-B Natriuret Pep 33.3 (0-450) pg/mL Serum Total Protein 7.5 (6.3-8.2) g/dL Albumin 4.1 (3.5-5.0) g/dL Influenza Type A Ag (NEGATIVE) Influenza Type B Ag (NEGATIVE) RSV (PCR) (Negative) SARS-CoV-2 (PCR) (NEGATIVE) 10/31/22 10/31/22 Range/Units 08:15 08:13 WBC 8.5 (4.0-10.5) x10^3/uL RBC 4.22 (4.1-5.4) x10^6/uL Hgb 12.7 (12.0-16.0) g/dL Hct 37.8 (35-47) % MCV 89.6 (78-100) fL MCH 30.1 (26-32) pg MCHC 33.6 (32-36) g/dL RDW 12.8 (11.5-14.0) % Plt Count 276 (150-450) x10^3/uL MPV 8.3 (7.5-11.0) fL Gran % 49.2 (36.0-66.0) % Immature Gran % (Auto) 0.2 (0.00-0.4) % Nucleat RBC Rel Count 0.0 (0.00-0.1) % Eos # (Auto) 0.14 (0-0.5) x10^3/uL Immature Gran # (Auto) 0.02 (0.00-0.03) x10^3u/L Absolute Lymphs (auto) 3.47 (1.0-4.6) x10^3/uL Absolute Monos (auto) 0.62 (0.0-1.3) x10^3/uL Absolute Nucleated RBC 0.00 (0.00-0.01) x10^3u/L Lymphocytes % 41.0 (24.0-44.0) % Monocytes % 7.3 (0.0-12.0) % Eosinophils % 1.7 (0.00-5.0) % Basophils % 0.6 (0.0-0.4) % Absolute Granulocytes 4.16 (1.4-6.9) x10^3/uL Basophils # 0.05 (0-0.4) x10^3/uL D-Dimer (0.0-0.50) mg/L Sodium (137-145) mmol/L Potassium (3.5-5.1) mmol/L Chloride (98-107) mmol/L Carbon Dioxide (22-30) mmol/L Anion Gap (5-15) MEQ/L BUN (7-17) mg/dL Creatinine (0.52-1.04) mg/dL Estimated GFR ML/MIN Glucose (74-106) mg/dL Calcium (8.4-10.2) mg/dL Total Bilirubin (0.2-1.3) mg/dL AST (14-36) U/L ALT (0-35) U/L Alkaline Phosphatase (38-126) U/L Troponin I (0.000-0.034) ng/mL NT-Pro-B Natriuret Pep (0-450) pg/mL Serum Total Protein (6.3-8.2) g/dL Albumin (3.5-5.0) g/dL Influenza Type A Ag NEGATIVE (NEGATIVE) Influenza Type B Ag NEGATIVE (NEGATIVE) RSV (PCR) NEGATIVE (Negative) SARS-CoV-2 (PCR) NEGATIVE (NEGATIVE) - Progress Progress: unchanged Air Movement: good Progress Note: 10/31/22 07:59 Patient describes a strange bubbling sensation in her chest with exhalation intermittently for 1 week. She also says she has been short of breath she works at the [employer] so she has exposure to COVID flu RSV etc. we will test for all those we will do an EKG troponin and a chest x-ray as well as a D-dimer and CMP. Blood Culture(s) Obtained: No Antibiotics given: Yes - Departure Departure Disposition: Home Clinical Impression: Bronchitis Condition: Stable Critical Care Time: No Referrals: VEENA MO NP [Primary Care Provider] - Follow up/PCP as directed Instructions: Acute Bronchitis, Adult (DC) Prescriptions: Amox Tr/Potass Clav. 875 mg [Augmentin 875-125 Tablet] 875 mg PO BID 10 Days #20 tablet
[2022-10-31] MEDS ORDERED: Sodium Chloride 0.9% 1000 ML 1,000 ML ONE (08:20)
[2022-10-31 08:21] LABS: Absolute Neutrophil Ct (ANC) 4.16 x10^3/uL (1.4-6.9); Basophil (Absolute #) 0.05 x10^3/uL (0-0.4); Eosinophil % 1.7 % (0.00-5.0); Eosinophil (Absolute #) 0.14 x10^3/uL (0-0.5); Hematocrit 37.8 % (35-47); Hemoglobin 12.7 g/dL (12.0-16.0); Lymphocyte (Absolute #) 3.47 x10^3/uL (1.0-4.6); Mean Cell Volume 89.6 fL (78-100); Mean Corpuscular Hemoglobin 30.1 pg (26-32); Mean Corpuscular Hgb Concent. 33.6 g/dL (32-36); Mean Platelet Volume 8.3 fL (7.5-11.0); Monocyte (Absolute #) 0.62 x10^3/uL (0.0-1.3); Monocytes % 7.3 % (0.0-12.0); Neutrophil % 49.2 % (36.0-66.0); Platelet Count 276 x10^3/uL (150-450); Red Blood Count 4.22 x10^6/uL (4.1-5.4); Red Cell Distribution Width 12.8 % (11.5-14.0); White Blood Count 8.5 x10^3/uL (4.0-10.5)
[2022-10-31 08:49] LABS: ALBUMIN 4.1 g/dL (3.5-5.0); ALKALINE PHOSPHATASE 100 U/L (38-126); ANION GAP 11.7 MEQ/L (5-15); BLOOD UREA NITROGEN 11 mg/dL (7-17); CHLORIDE 104 mmol/L (98-107); Carbon Dioxide 25 mmol/L (22-30); Creatinine 1 0.63 mg/dL (0.52-1.04); EST GLOMERULAR FILTRATION RATE > 60.0 ML/MIN; Glucose 113 mg/dL (74-106); NT PRO BNP 33.3 pg/mL (0-450); Potassium 3.6 mmol/L (3.5-5.1); SGOT/AST 58 U/L (14-36); SGPT/ALT 32 U/L (0-35); SODIUM 137 mmol/L (137-145); Total Protein 7.5 g/dL (6.3-8.2)
[2022-10-31 08:58] LABS: INFLUENZA A NEGATIVE (NEGATIVE); INFLUENZA B NEGATIVE (NEGATIVE); RESPIRATORY SYNCTIAL VIRUS NEGATIVE (Negative); SARS-CoV-2 Xpert Express NEGATIVE (NEGATIVE)
--- NOTE | 2022-10-31 09:21 | XRAY ---
Indication: Short of breath. Comparison: March 07, 2021 Portable chest again demonstrates normal heart, lungs, and bony thorax.
[2022-10-31 09:23] VITALS: BP 101/67; PULSE 75; O2SAT 93
== END 2022-10-31 09:33 | disposition home or self-care (01) ==
LOC: ED 07:43
DX: J40 Bronchitis, not specified as acute or chronic (principal); R07.9 Chest pain, unspecified; R06.02 Shortness of breath; Z20.828 Contact with and (suspected) exposure to other viral communicable diseases
CPT/HCPCS: 0241U; 36000; 36415; 71045; 80053; 83605; 83880; 84484; 85025; 85379; 93005; 99284